=== PATIENT | female | born 1975 | race Caucasian/White ===

== ENCOUNTER 2017-02-18 15:36 | Emergency (ER) | payer MEDICAID, SELFPAY ==
[2017-02-18] MEDS ORDERED: Acetaminophen 500 MG TAB ONE (17:38)
== END 2017-02-18 19:30 | disposition home or self-care (01) ==
LOC: ERS 15:36
DX: J11.1 Influenza due to unidentified influenza virus with other respiratory manifestations (principal)
CPT/HCPCS: 87804; 99283

== ENCOUNTER 2017-06-02 20:00 | Inpatient (IN) | payer MEDICAID, OTHER, SELFPAY ==
[2017-06-02 21:32] VITALS: BMI 48.2
[2017-06-02] MEDS ORDERED: Ondansetron HCl/PF 4 MG/2 ML Vial IVP PRN (21:49)
[2017-06-02] MEDS ORDERED: Promethazine HCl 25 MG/ML VIAL IM PRN (21:49)
[2017-06-02] MEDS ORDERED: Lidocaine 1% (PF) 30 ML VIAL SC PRN (21:57)
[2017-06-02] MEDS ORDERED: Misoprostol 100 MCG TAB VAG SCH ×2 (22:00→23:00)
[2017-06-02] MEDS ORDERED: Penicillin G Potassium 5 MILL.UNITS in Sodium Chloride 0.9% 100 ML IVPB SCH (22:00)
[2017-06-02 22:21] LABS: Hemoglobin 11.6 g/dL (12.0-16.0); Mean Corpuscular HGB CONC 32.5 g/dL (32.0-36.0); Mean Corpuscular Volume 83.3 fl (81.0-99.0); Mean Platelet Volume 7.8 fL (7.4-10.4); Platelet Count 308 thou/uL (130-400); RBC Distribution Width 15.1 % (11.5-14.5); Red Blood Cell (RBC) Count 4.28 mill/uL (4.20-5.40)
[2017-06-02 22:58] LABS: Syphilis Antibody Nonreactive (Nonreactive); Syphilis Antibody Index 0.04 S/CO (<1.00 Non-Reactive)
[2017-06-02 23:12] LABS: HBSAg Index 0.14 S/CO (0-0.99); Hep B Surf Ag Non-Reactive S/CO (NonReactive)
--- NOTE | 2017-06-03 01:07 | PDOC.LDHP ---
Labor and Delivery H&P Chief complaint: scheduled induction HPI: Patient comes in for scheduled induction 2/2 >95% weight. Patient had periods of uncontrolled DM during the , refused insulin. Denies [place] of fluid, blood, or discharge. Not feeling contractions. No dysuria. No headache , visual changes, SOB, or swelling. Feeling baby move >10x per hour. Current gestational age (weeks): 37 Due date: 06/17/17 Dating criteria: first trimester ultrasound Grav: 4 Para: 1 OB History Details: 2 spontaneous abortions Last delivery in 2016 Macrosomia [id number]., shoulder dystocia- nagi Current complications: gestational diabetes Abnormal US findings: No Past Medical History: none Current medications: pre-kathleen vitamins, iron Previous surgical history: none Social history: none - Physical Exam General: NAD Heart: RRR Lungs: nonlabored breathing Abdomen: NTTP Extremeties: no edema FHT: category 1 - Vaginal Exam Effacement: 0% Station: -3 - OB Labs Blood type: O RH: positive Antibody Screen: negative HIV: negative RPR: negative HEPSAg: negative GBS: positive Urine drug screen: negative Rubella: immune - Assessment L&D Assessment: medically indicated induction - Plan Plan: admit to L&D, cervical ripening, GBS antibiotic prophylaxis <Bernard Jarvis - Last Filed: 06/03/17 08:22> <Rito Lane - Last Filed: 06/03/17 08:36> Allergies/Adverse Reactions: Allergies Allergy/AdvReac Type Severity Reaction Status Date / Time No Known Drug Allergies Allergy Verified 03/11/15 03:16 Attending Addendum - Attending Addendum Date/Time: 06/03/17 0834 I personally evaluated the patient and discussed the management with Dr. Jarvis. I agree with and repeated the History, Examination, Assessment and Plan documented above with any addition or exceptions noted below. @ 37w6d by LMP c/w 16w0d sono -h/o shoulder dystocia in 2016 -uncontrolled GDM on 2 agents, refused insulin multiple times 1. Plan for induction, risks of shoulder dystocia including CP, nerve injury, trauma, perineal tears discussed; risks of early term including respiratory difficulties and hypoglycemia discussed and patient voices understanding and desires to proceed. We have a consultation from youth nutritional monitor who agreed previously (see chart). 2. Sugar checks q2h in latent, q1h in active and second stage 3. PCN for GBS ppx <Rito Lane - Last Filed: 06/03/17 08:36>
--- NOTE | 2017-06-03 01:14 | PDOC.EVN ---
Event Note - Event Note Event Note: Labor check Mother feels well, no bleeding or discharge Feels baby moving often lili q3 minutes, is feeling the contractions, FHT 140, accels present, no decels, good variability class 1 strip Cytotec placed at 1115 /-3 Plan to re-check in 2-3 hours <Bernard Jarvis - Last Filed: 06/03/17 01:07> Attending Addendum - Attending Addendum Date/Time: 06/03/[address] Jarvis and agree. <Rito Lane - Last Filed: 06/03/17 06:26>
[2017-06-03] MEDS: Penicillin G 2.5 MILL.units 2.5 MILL.UNITS in Premix Bag 1 BAG IVPB SCH ×3 (02:00→12:06)
[2017-06-03] MEDS ORDERED: Labetalol HCl 100 MG/20 ML VIAL ONE (03:40)
[2017-06-03] MEDS ORDERED: Naloxone HCl 0.4 mg/ml Vial IVP PRN ×2 (05:20)
[2017-06-03] MEDS ORDERED: Acetaminophen 325 MG TAB PO PRN (05:20)
[2017-06-03] MEDS ORDERED: Lactated Ringer's 500 ML IV PRN (05:20)
[2017-06-03] MEDS ORDERED: diphenhydrAMINE 50 MG/ML VIAL IVP PRN (05:20)
[2017-06-03] MEDS ORDERED: Eucerin (Mineral Oil/Petrolatum,White) 30 gm Jar TOP PRN (05:20)
[2017-06-03] MEDS ORDERED: Promethazine HCl 25 MG/ML VIAL IM PRN (05:20)
[2017-06-03] MEDS ORDERED: ePHEDrine/0.9% NaCl/PF SYRINGE 50 mg/10 ml SLOW IVP PRN (05:20)
[2017-06-03] MEDS ORDERED: Ondansetron HCl/PF 4 MG/2 ML Vial IVP PRN (05:20)
[2017-06-03] MEDS ORDERED: Communication Order-Pharmacy FS SCH (05:30)
[2017-06-03] MEDS ORDERED: Fentanyl 4mcg/Marcaine 0.1% Cassette 100 ML EPIDURAL SCH (05:30)
[2017-06-03] MEDS ORDERED: Bupivacaine 0.5% 20 ML, fentaNYL Citrate/PF 400 MCG in Sodium Chloride 0.9% 72 ML EPIDURAL SCH (07:00)
--- NOTE | 2017-06-03 07:17 | PDOC.LDPN ---
Labor & Delivery Progress Note - Subjective Subjective: comfortable - Objective Vital signs reviewed and normal: yes General: resting Uterine fundus: non tender Dilation: 8/80/-2 @ 0635 FHT: category 1, acceleration absent [place] contractions every: q2-3 min - Assessment (1) GDM, class A2 Code(s): O24.419 - GESTATIONAL DIABETES MELLITUS IN , UNSP CONTROL Current Visit: Yes Status: Acute (2) Current Visit: Yes Status: Acute (3) Positive GBS test Code(s): B95.1 - STREPTOCOCCUS, GROUP B, CAUSING DISEASES CLASSD ELSWHR Current Visit: Yes Status: Acute (4) Morbidly obese Code(s): E66.01 - MORBID (SEVERE) OBESITY DUE TO EXCESS CALORIES Current Visit : Yes Status: Acute (5) H/O shoulder dystocia in prior , currently Code(s): O09.299 - SUPRVSN OF PREG W POOR REPRODCTV OR OBSTET HISTORY, UNSP TRI Current Visit: Yes Status: Acute Plan: continue plan of care -: 1. 41 yo at 38.0w by LMP/16.0w sono here for IOL - Progressing well without pitocin - Continue expectant management 2. A2GDM, uncertain control - Control was improved late in on metformin and glyburide - Continue scheduled accuchecks - Indication for delivery at 38 weeks 3. Will confirm need for Tdap later today 4. NILM pap with high risk HPV pos - Recommend colpo vs. repeat pap 5. H/o shoulder dystocia - Additional indication for induction MD Haider, PGY-2 <Nova Dimas - Last Filed: 06/03/17 07:14> Attending Addendum - Attending Addendum Date/Time: 06/03/17 0837 I personally evaluated the patient and discussed the management with Dr. Dimas. I agree with the History, Examination, Assessment and Plan documented above with any addition or exceptions noted below. Continue current management. Reassuring labor curve thus far, closely monitor descent. AROM when able. <Rito Lane - Last Filed: 06/03/17 08:38>
[2017-06-03] MEDS ORDERED: Lactated Ringer's 1,000 ML IV SCH (08:15)
--- NOTE | 2017-06-03 08:34 | PDOC.LDPN ---
Labor & Delivery Progress Note - Subjective Subjective: comfortable - Objective Vital signs reviewed and normal: yes General: NAD, resting Effacement: 75% Station: -2 FHT: category 1 [place] contractions every: 6 minutes Resuscitative measures: maternal oxygen, maternal IV fluids, maternal position change - Assessment (1) GDM, class A2 Code(s): O24.419 - GESTATIONAL DIABETES MELLITUS IN , UNSP CONTROL Current Visit: Yes Status: Acute (2) H/O shoulder dystocia in prior , currently Code(s): O09.299 - SUPRVSN OF PREG W POOR REPRODCTV OR OBSTET HISTORY, UNSP TRI Current Visit: Yes Status: Acute (3) Morbidly obese Code(s): E66.01 - MORBID (SEVERE) OBESITY DUE TO EXCESS CALORIES Current Visit : Yes Status: Acute (4) Positive GBS test Code(s): B95.1 - STREPTOCOCCUS, GROUP B, CAUSING DISEASES CLASSD ELSWHR Current Visit: Yes Status: Acute (5) Current Visit: Yes Status: Acute Plan: continue plan of care, labor augmentation, pitocin for augmentation, resuscitative measures -: 1. 41 yo at 38.0w by LMP/16.0w sono here for IOL - No progress from last check. - Will start Pitocin - Continue expectant management 2. A2GDM, uncertain control - Control was improved late in on metformin and glyburide - Continue scheduled accuchecks, last check 100 - Indication for delivery at 38 weeks 3. Will confirm need for Tdap later today 4. NILM pap with high risk HPV pos - Recommend colpo vs. repeat pap 5. H/o shoulder dystocia - Additional indication for induction <Enrique Mercedes - Last Filed: 06/03/17 08:35> - Objective Uterine fundus: non tender Dilation: 6 [place] contractions every: 2-4 minutes - Assessment (1) GDM, class A2 Code(s): O24.419 - GESTATIONAL DIABETES MELLITUS IN , UNSP CONTROL Current Visit: Yes Status: Acute (2) Current Visit: Yes Status: Acute (3) Positive GBS test Code(s): B95.1 - STREPTOCOCCUS, GROUP B, CAUSING DISEASES CLASSD ELSWHR Current Visit: Yes Status: Acute (4) Morbidly obese Code(s): E66.01 - MORBID (SEVERE) OBESITY DUE TO EXCESS CALORIES Current Visit : Yes Status: Acute (5) H/O shoulder dystocia in prior , currently Code(s): O09.299 - SUPRVSN OF PREG W POOR REPRODCTV OR OBSTET HISTORY, UNSP TRI Current Visit: Yes Status: Acute <Nova Dimas - Last Filed: 06/03/17 10:53>
[2017-06-03] MEDS ORDERED: LR 500 ML/Oxytocin 10 units 500 ML IV SCH (08:45)
--- NOTE | 2017-06-03 10:55 | PDOC.LDPN ---
Labor & Delivery Progress Note - Subjective Subjective: comfortable - Objective Vital signs reviewed and normal: yes General: NAD, resting Uterine fundus: non tender Dilation: 6 Effacement: 75% Station: -2 FHT: category 2 [place] contractions every: 2-4 min Resuscitative measures: maternal position change - Assessment (1) GDM, class A2 Code(s): O24.419 - GESTATIONAL DIABETES MELLITUS IN , UNSP CONTROL Current Visit: Yes Status: Acute (2) Current Visit: Yes Status: Acute (3) Positive GBS test Code(s): B95.1 - STREPTOCOCCUS, GROUP B, CAUSING DISEASES CLASSD ELSWHR Current Visit: Yes Status: Acute (4) Morbidly obese Code(s): E66.01 - MORBID (SEVERE) OBESITY DUE TO EXCESS CALORIES Current Visit : Yes Status: Acute (5) H/O shoulder dystocia in prior , currently Code(s): O09.299 - SUPRVSN OF PREG W POOR REPRODCTV OR OBSTET HISTORY, UNSP TRI Current Visit: Yes Status: Acute Plan: continue plan of care, pitocin for augmentation -: 41 yo at 38.0w by LMP/16.0w sono here for IOL 1. sIUP - Pitocin started at 0830, started having intermittent variable decels and pit turned down/now off - Will try position change and consider AROM for internal monitors if continues to be difficult to trace 2. A2GDM, uncertain control - Control was improved late in on metformin and glyburide - Continue scheduled accuchecks, will increase frequency to [id number] - Indication for delivery at 38 weeks 3. Will confirm need for Tdap later today 4. NILM pap with high risk HPV pos (16/18 neg) - Repeat pap due in 1 year with co-testing 5. H/o shoulder dystocia - Additional indication for induction MD Haider, PGY-2
--- NOTE | 2017-06-03 12:33 | PDOC.LDPN ---
Labor & Delivery Progress Note - Subjective Subjective: comfortable, painful contractions (improved with repositioning) - Objective Vital signs reviewed and normal: yes (intermittent bradycardia to high 40s/50s, asymptomatic) General: NAD, resting, breathing through contractions Uterine fundus: non tender Dilation: 9 Effacement: 90% Station: -1 FHT: category 1 (120/mod/no accel/early decels) [place] contractions every: 2-4 min AROM: clear fluid IUPC placed: yes FSE placed: yes Resuscitative measures: maternal position change - Assessment (1) GDM, class A2 Code(s): O24.419 - GESTATIONAL DIABETES MELLITUS IN , UNSP CONTROL Current Visit: Yes Status: Acute (2) Current Visit: Yes Status: Acute (3) Positive GBS test Code(s): B95.1 - STREPTOCOCCUS, GROUP B, CAUSING DISEASES CLASSD ELSWHR Current Visit: Yes Status: Acute (4) Morbidly obese Code(s): E66.01 - MORBID (SEVERE) OBESITY DUE TO EXCESS CALORIES Current Visit : Yes Status: Acute (5) H/O shoulder dystocia in prior , currently Code(s): O09.299 - SUPRVSN OF PREG W POOR REPRODCTV OR OBSTET HISTORY, UNSP TRI Current Visit: Yes Status: Acute -: 41 yo at 38.0w by LMP/16.0w sono here for IOL 1. sIUP - making good change - Pitocin started at 0830, started having intermittent variable decels and pit turned down, now restarted to 2 - s/p AROM with IUPC and FSE placement 2. A2GDM, uncertain control - Control was improved late in on metformin and glyburide - Continue scheduled accuchecks, will increase frequency to [id number] - Indication for delivery at 38 weeks - Goal 76-126 intrapartum 3. Will confirm need for Tdap with Clinic 4. NILM pap with high risk HPV pos (16/18 neg) - Repeat pap due in 1 year with co-testing 5. H/o shoulder dystocia - Additional indication for induction MD Haider, PGY-2
--- NOTE | 2017-06-03 13:53 | PDOC.LDPN ---
Labor & Delivery Progress Note - Subjective Subjective: painful contractions - Objective Vital signs reviewed and normal: yes General: resting, breathing through contractions Uterine fundus: non tender Dilation: anterior lip Effacement: 100% Station: -1 FHT: category 1, early decelerations, variability present [place] contractions every: 2-5 Resuscitative measures: maternal position change - Assessment (1) GDM, class A2 Code(s): O24.419 - GESTATIONAL DIABETES MELLITUS IN , UNSP CONTROL Current Visit: Yes Status: Acute (2) Current Visit: Yes Status: Acute (3) Positive GBS test Code(s): B95.1 - STREPTOCOCCUS, GROUP B, CAUSING DISEASES CLASSD ELSWHR Current Visit: Yes Status: Acute (4) Morbidly obese Code(s): E66.01 - MORBID (SEVERE) OBESITY DUE TO EXCESS CALORIES Current Visit : Yes Status: Acute (5) H/O shoulder dystocia in prior , currently Code(s): O09.299 - SUPRVSN OF PREG W POOR REPRODCTV OR OBSTET HISTORY, UNSP TRI Current Visit: Yes Status: Acute Plan: pitocin for augmentation -: 41 yo at 38.0w by LMP/16.0w sono here for IOL 1. sIUP - now anterior lip - Pitocin started at 0830, started having intermittent variable decels and pit turned down, MVU 180, will go up to 4u pitocin - s/p AROM with IUPC and FSE placement 2. A2GDM, uncertain control - Control was improved late in on metformin and glyburide - Continue scheduled accuchecks, will increase frequency to [id number] - Indication for delivery at 38 weeks - Goal 70-126 intrapartum 4. NILM pap with high risk HPV pos (16/18 neg) - Repeat pap due in 1 year with co-testing 5. H/o shoulder dystocia - Additional indication for induction 6. s/p Tdap at [facility] MD Haider, PGY-2
[2017-06-03] MEDS: LR / Pitocin 40 units/1000 ml 1,000 ML IV PRN ×2 (16:02→17:07)
--- NOTE | 2017-06-03 16:27 | PDOC.OPDEL ---
OB Operative/Delivery Note - Additional Findings/Plan Compilations/Other Findings: Delivering Physician Dr. Dimas, Dr. Mercedes Attending: Dr. Dewey Procedure: Spontaneous Vaginal Delivery Anesthesia: epidural EBL: 300 ml Pre-op Diagnosis: 1. Term intrauterine in labor 2. Gestational Diabetes 3. Hx of Shoulder Dystocia Post-op Diagnosis: 1. Term intrauterine , delivered 2. same as above Indications: A 41 y/o female G4P 1021 presents to L&D for induction due to gestational DM and history of shoulder dystocia. Delivery Note: This is 41 yo F G 4P 1021 @ 38.0 wks who delivered a viable M at 15:50 on 06/03/17. Following an uneventful antepartum course, a vigorous MALE was delivered over an intact perineum in the Right occipitoanterior position. Anterior Shoulder and then remainder of the body delivered. No nuchal cord. The head was held down and mouth and nares were bulb suctioned. Cord clamped and cut and cord blood collected. Placenta delivered intact with a 3 vessel cord noted. Fundal massage was performed and the fundus was firm. The cervix and vagina were inspected and found to be free of lacerations.Infant went to nursery in good condition for routine care. Apgars were 8 / 9at 1 & 5 minutes, respectively. Patient tolerated delivery well and went to after routine recovery/care.
[2017-06-03] MEDS ORDERED: Milk Of Magnesia 30 ML UDCUP PO PRN (19:10)
[2017-06-03] MEDS ORDERED: LR / Pitocin 40 units/1000 ml 1,000 ML IV SCH (19:10)
[2017-06-03] MEDS ORDERED: Bisacodyl 10 MG SUPP PR PRN (19:10)
[2017-06-03] MEDS ORDERED: Benzocaine/Menthol 20-0.5% 60 ML CAN TOP PRN (19:10)
[2017-06-03] MEDS ORDERED: Adacel (T-DAP) 0.5 ML VIAL IM ONE (19:10)
[2017-06-03] MEDS ORDERED: Lanolin Ointment 7 GM TUBE TOP PRN (19:10)
[2017-06-03] MEDS ORDERED: Preparation H Ointment 28 GM TUBE PR PRN (19:10)
[2017-06-03] MEDS: Docusate Calcium (SURFAK) 240 MG CAP PO SCH (21:08)
--- NOTE | 2017-06-04 06:08 | PDOC.PP ---
Post Progress Note Post Day #: 1 Subjective: Feeling well this morning. She is tolerating PO and ambulating without issue. She is feeling like she'd like to go this afternoon if all is well with the baby. They are moving to [place] this weekend and I stressed importance of close f/u for baby with appointment Wednesday and for her at 2 weeks . PO intake tolerated: yes Flatus: yes Ambulation: yes Vital Signs (12 hours) Temp Pulse Resp BP BP 06/04/17 03:30 98.4 F 84 20 115/56 L 06/03/17 23:50 99.3 F 76 20 127/58 L 06/03/17 20:50 98.3 F 76 20 126/66 06/03/17 19:40 98.2 F 76 20 113/57 L 06/03/17 18:20 97.8 F 74 20 124/65 Weight Weight 123.377 kg - Physical Examination General: NAD Cardiovascular: no m/r/g, RRR Respiratory: clear to auscultation bilaterally, non-labored breathing Abdominal: + bowel sounds, lochia (scant, < menstrual period), no distention, appropriately TTP Fundus firm & at: below umbilicus Extremities: negative homans (B) Neurological: no gross focal deficits Psychiatric: A&Ox3, normal affect Result Diagrams: 06/04/17 06:02 Additional Labs: Post Labs Blood Type O POSITIVE 06/02/17 21:55 Hep Bs Antigen Non-Reactive S/CO (NonReactive) 06/02/17 21:55 (1) GDM, class A2 Code(s): O24.419 - GESTATIONAL DIABETES MELLITUS IN , UNSP CONTROL Status: Acute (2) Positive GBS test Code(s): B95.1 - STREPTOCOCCUS, GROUP B, CAUSING DISEASES CLASSD ELSWHR Status : Acute (3) Morbidly obese Code(s): E66.01 - MORBID (SEVERE) OBESITY DUE TO EXCESS CALORIES Status: Acute - Assessment/Plan 41 yo now [id number] s/p at 1550 no 06/03/17 1. PPD #1 from - EBL 300 - PP H&H stable 2. A2GDM, uncertain control - Control was improved late in on metformin and glyburide - Can d/c accuchecks - Will need 2 hour GTT outpatient 4. NILM pap with high risk HPV pos (16/18 neg) - Repeat pap due in 1 year with co-testing 5. H/o shoulder dystocia - Additional indication for induction 6. s/p [facility]dap at [facility] 7. GBS positive - Adequately treated intrapartum with 4 doses PCN 8. PP contraception - Does not desire any more children - Considering IUD vs. Nexplanon - Needs 2 week pp visit MD Haider, PGY-2
[2017-06-04 06:35] LABS: Hemoglobin 11.2 g/dL (12.0-16.0)
[2017-06-04] MEDS: Ferrous Sulfate 325 MG TAB PO SCH ×2 (07:35→09:19)
[2017-06-04] MEDS ORDERED: Lidocaine 2% MPF 10 ML AMP (For Epidural Use) ONE (08:03)
[2017-06-04] MEDS ORDERED: Bupivacaine/Epinephrine 0.25% 30 ML VIAL ONE (08:03)
[2017-06-04] MEDS ORDERED: Prenatal Vitamin 1 TAB PO SCH (09:00)
[2017-06-04] MEDS: Docusate Calcium (SURFAK) 240 MG CAP PO SCH (09:19)
[2017-06-04] MEDS ORDERED: Ibuprofen 800 MG TAB PO SCH (10:15)
[2017-06-04 16:31] VITALS: BP 109/58; TEMP 98
== END 2017-06-04 17:41 | disposition home or self-care (01) | DRG 775 ==
LOC: L&D 20:48 → 3SW 06-03 18:29
PROVIDERS: ADMIT Family Medicine; ATTEND Family Medicine
PROC: 10E0XZZ Delivery of Products of Conception, External Approach (ICD-10-PCS; principal; 2017-06-03)
PROC: 3E033VJ Introduction of Other Hormone into Peripheral Vein, Percutaneous Approach (ICD-10-PCS; 2017-06-03)
DX: O24.429 Gestational diabetes mellitus in childbirth, unspecified control (principal); E66.01 Morbid (severe) obesity due to excess calories; Z37.0 Single live birth; Z3A.37 37 weeks gestation of pregnancy; O99.214 Obesity complicating childbirth; O99.824 Streptococcus B carrier state complicating childbirth
CPT/HCPCS: 36415; 36416; 51702; 85014; 85018; 85027; 86780; 86850; 86900; 86901; 87340; J2001; J2540; J3010; J3490; J7050; J7120